=== PATIENT | male | born 1965 | race African-American/Black ===

== ENCOUNTER 2022-05-29 00:03 | Emergency (ER) | payer OTHER ==
[~2022-05-29] VITALS: Ht 167.6 cm; Wt 65.0 kg
[2022-05-29 01:01] VITALS: BP 168/97
== END 2022-05-29 06:26 | disposition home or self-care (01) ==
LOC: ER 00:03
DX: M25.521 Pain in right elbow (principal); M54.59 Other low back pain; R51.9 Headache, unspecified; V43.62XA Car passenger injured in collision with other type car in traffic accident, initial encounter; Y93.89 Activity, other specified; Y92.410 Unspecified street and highway as the place of occurrence of the external cause; Y99.8 Other external cause status
CPT/HCPCS: 72100; 73080